=== PATIENT | male | born 1980 | race Hispanic/Latino ===

== ENCOUNTER 2019-02-06 21:12 | Emergency (ER) | payer MEDICAID ==
[2019-02-06 21:19] VITALS: RESP 18; TEMP 98.8
--- NOTE | 2019-02-06 22:29 | ED PDOC ---
HPI: Chest Pain Time Seen by Provider: 02/06/19 21:24 Chief Complaint (Nursing): Medical Clearance Chief Complaint (Provider): chest pain History Per: Patient History/Exam Limitations: no limitations Onset/Duration Of Symptoms: Intermittent Episodes (for 1 month and recurred today about an hour ago) Quality: Pressure Associated Symptoms: Dyspnea Additional Complaint(s): pt reports intermittent chest pain for months, recurred again today about an hour prior to arrival while under police custody. admits that he typically gets the pain during stressful situations he also reports that for the last month he's been having bilateral leg pains and swelling Has h/o IVDA and reports in May 2018 he was brought to [facility] under policy custody for clearance and that he was found to have septic knee and admitted for one month for IV antibiotics. He did not followup for further care (physical therapy and followup) after hospitalization. PMD None Past Medical History Reviewed: Historical Data, Nursing Documentation, Vital Signs Vital Signs: Last Vital Signs Temp 98.8 F 02/06/19 21:15 Pulse 88 02/06/19 21:15 Resp 18 02/06/19 21:15 BP 142/88 02/06/19 21:15 Pulse Ox 98 02/06/19 21:15 - Medical History PMH: Arthritis - Family History Family History: States: Unknown Family Hx - Social History Current smoker - smoking cessation education provided: Yes Drugs: Opiates - Allergies Allergies/Adverse Reactions: Allergies Allergy/AdvReac Type Severity Reaction Status Date / Time No Known Allergies Allergy Verified 02/06/19 21:15 Review of Systems ROS Statement: Except As Marked, All Systems Reviewed And Found Negative (and as per HPI) Constitutional: Positive for: Chills, Weakness, Malaise Cardiovascular: Positive for: Chest Pain, Light Headedness Respiratory: Positive for: Shortness of Breath Musculoskeletal: Positive for: Leg Pain (bilateral knee) Physical Exam - Reviewed Nursing Documentation Reviewed: Yes Vital Signs Reviewed: Yes - Physical Exam Appears: Positive for: Non-toxic Head Exam: Positive for: ATRAUMATIC, NORMOCEPHALIC Skin: Positive for: Warm, Dry Eye Exam: Positive for: EOMI, PERRL ENT: Negative for: Pharyngeal Erythema, Tonsillar Exudate Neck: Positive for: Painless ROM, Supple Cardiovascular/Chest: Positive for: Regular Rate, Rhythm, Chest Non Tender, Edema. Negative for: Murmur Respiratory: Positive for: Normal Breath Sounds. Negative for: Respiratory Distress Gastrointestinal/Abdominal: Positive for: Soft. Negative for: Tenderness Back: Positive for: Normal Inspection Extremity: Positive for: Other (bilateral lower leg 1+ pitting edema, subtle bilateral knee edema diffusely with FROM, no warmth or redness). Negative for: Calf Tenderness, Deformity Lymphatic: Negative for: Adenopathy Neurological/Psych: Positive for: Awake, Alert. Negative for: Motor/Sensory Deficits - Laboratory Results Result Diagrams: 02/06/19 23:32 02/06/19 22:38 - ECG ECG: Positive for: Interpreted By Me ECG Rhythm: Positive for: Normal QRS, Normal ST Segment, Sinus Rhythm (@88) O2 Sat by Pulse Oximetry: 98 Pulse Ox Interpretation: Normal - Progress ED Course And Treament: CXR No acute findings Bilateral knee: degenerative changes but no acute fracture/dislocation Labs demonstrate elevated ddimer. Otherwise no abnormalities CT ordrerd Disposition - Clinical Impression Clinical Impression: Chest pain, Leg edema - Disposition Disposition Time: 00:15 Condition: STABLE Instructions: General (DC) Patient Signed Over To: Jacob Vargas Handoff Comments: Pending CT and final ER disposition
[2019-02-06 22:53] LABS: ALB/GLOB RATIO 1.1 (1.0-2.1); ALBUMIN 4.5 g/dL (3.5-5.0); BLOOD UREA NITROGEN 17 mg/dl (9-20); CALCIUM 9.5 mg/dL (8.4-10.2); GFR NON-AFRICAN AMERICAN > 60
[2019-02-06 23:04] LABS: ALT/SGPT 28 U/L (21-72); AST/SGOT 37 U/L (17-59); B-TYPE NATRIURETIC PEPTIDE 76.9 pg/ml (0-450)
[2019-02-06 23:35] LABS: BASO % 0.4 % (0.0-2.0); EOS # 0.1 K/uL (0.0-0.7); EOS % 1.2 % (0.0-4.0); LYMPH # 2.2 K/uL (1.0-4.3); LYMPH % 22.1 % (20.0-40.0); MEAN CELL VOLUME 73.9 fl (80.0-94.0); MEAN CORPUSCULAR HEMOGLOBIN 24.4 pg (27.0-31.0); MEAN CORPUSCULAR HGB CONC 33.1 g/dL (33.0-37.0); MEAN PLATELET VOLUME 7.4 fl (7.2-11.7); MONO # 0.5 K/uL (0.0-0.8); MONO % 5.3 % (0.0-10.0); NEUT # 7.1 K/uL (1.8-7.0); NRBC % 0.1 % (0.0-0.0); RBC 4.89 Mil/uL (4.40-5.90); RED CELL DISTRIBUTION WIDTH 15.7 % (11.5-14.5)
[2019-02-07] MEDS ORDERED: Sodium Chloride 0.9% 50 ML IV ONE (00:29)
[2019-02-07] MEDS ORDERED: Iodixanol 320 MG/ML 100 ML BOTTLE IV ONE (00:29)
--- NOTE | 2019-02-07 01:05 | ED PDOC ---
- Laboratory Results Result Diagrams: 02/06/19 23:32 02/06/19 22:38 Lab Results: D-Dimer, Quantitative 308 ng/mlDDU (0-230) H 02/06/19 23:32 Troponin I < 0.0120 ng/mL (0.00-0.120) 02/06/19 22:38 NT-Pro-B Natriuret Pep 76.9 pg/ml (0-450) 02/06/19 22:38 Total Bilirubin 0.5 mg/dl (0.2-1.3) 02/06/19 22:38 AST 37 U/L (17-59) 02/06/19 22:38 ALT 28 U/L (21-72) 02/06/19 22:38 Alkaline Phosphatase 94 U/L (38-126) 02/06/19 22:38 Total Protein 8.7 G/DL (6.3-8.2) H 02/06/19 22:38 Albumin 4.5 g/dL (3.5-5.0) 02/06/19 22:38 Globulin 4.2 gm/dL (2.2-3.9) H 02/06/19 22:38 Albumin/Globulin Ratio 1.1 (1.0-2.1) 02/06/19 22:38 - ECG O2 Sat by Pulse Oximetry: 98 (RA) Pulse Ox Interpretation: Normal Medical Decision Making Medical Decision Makin:15 Patient endorsed to this provider by Dr. Fan at bedside pending CT, re- evaluation and final disposition. 01:05 CTA FINDINGS: Normal enhancement of the main pulmonary artery and right and left pulmonary arteries. Normal enhancement of the bilateral peripheral pulmonary arteries. There is no demonstrated pulmonary embolism. Normal thoracic aorta and visualized great vessels. There is no demonstrated aortic dissection. Normal heart and pericardium. Normal mediastinum. Normal hilar regions. Normal visualized trachea and bronchi. The lungs are well expanded. Normal pulmonary parenchyma. Normal pleura. Normal chest wall structures. Normal osseous structures. Normal visualized upper abdomen. IMPRESSION: Normal CTA chest examination, without a demonstrated pulmonary embolism or arterial dissection. 01:22 Patient is stable for discharge to police custody. He is both medically and psychiatrically cleared for incarceration. Scribe Attestation: Documented by Christine Gomez, acting as a scribe Lew Vargas MD Provider Scribe Attestation: All medical record entries made by the Scribe were at my direction and personally dictated by me. I have reviewed the chart and agree that the record accurately reflects my personal performance of the history, physical exam, medical decision making, and the department course for this patient. I have also personally directed, reviewed, and agree with the discharge instructions and disposition Disposition - Clinical Impression Clinical Impression: Chest pain, Leg edema - POA Present On Arrival: None - Disposition Disposition: Discharged/Transfer to Law Enforcement Disposition Time: 01:22 Condition: STABLE Additional Instructions: Patient is medically and psychiatrically stable for incarceration Instructions: General (DC)
[2019-02-07 01:48] VITALS: BP 134/88; PULSE 84
[2019-02-07 03:37] VITALS: O2SAT 98
--- NOTE | 2019-02-07 07:59 | RAD ---
Date of service: 02/06/2019 PROCEDURE: Bilateral Knee Radiographs. HISTORY: knee pains COMPARISON: None. TECHNIQUE: 4 views obtained. FINDINGS: BONES: Right Knee: No fracture Left Knee: No fracture JOINTS: Right Knee: Arthrosis Left knee: Arthrosis SOFT TISSUES: Right Knee: Normal. Left Knee: Normal. JOINT EFFUSION: Right Knee: None. Left Knee: None. OTHER FINDINGS: None. IMPRESSION: Bilateral tricompartmental osteoarthrosis. Each medial femoral tibial compartment appears most severely affected. The right medial femoral tibial compartment is more severe than the left. Along with joint space narrowing and subchondral sclerosis and cystic changes, right valgus orientation noted. No fracture or suspect lytic lesion.
--- NOTE | 2019-02-07 08:00 | RAD ---
Date of service: 02/06/2019 HISTORY: chest pain COMPARISON: No prior. TECHNIQUE: Chest PA and lateral views FINDINGS: LUNGS: No active pulmonary disease. PLEURA: No significant pleural effusion identified. No pneumothorax apparent. CARDIOVASCULAR: No aortic atherosclerotic calcification present. Normal cardiac size. No pulmonary vascular congestion. OSSEOUS STRUCTURES: No significant abnormalities. VISUALIZED UPPER ABDOMEN: Normal. OTHER FINDINGS: None. IMPRESSION: No active disease.
--- NOTE | 2019-02-07 08:43 | CT ---
Date of service: 02/07/2019 PROCEDURE: CT Chest with contrast (Pulmonary Angiogram) HISTORY: chest pain COMPARISON: None available. TECHNIQUE: Axial computed tomography images were obtained of the chest in the pulmonary arterial phase of enhancement. Coronal and sagittal reformatted images were created and reviewed. Intravenous contrast dose: 100 mL of Visipaque 320 Radiation dose: Total exam DLP = 378.83 mGy-cm. This CT exam was performed using one or more of the following dose reduction techniques: Automated exposure control, adjustment of the mA and/or kV according to patient size, and/or use of iterative reconstruction technique. FINDINGS: PULMONARY ARTERIES: Unremarkable. No pulmonary embolism. AORTA: No acute findings. No thoracic aortic aneurysm. No aortic atherosclerotic calcification or mural plaque present. LUNGS: Unremarkable. No nodule, mass or pulmonary consolidation. PLEURAL SPACES: Unremarkable. No effusion or pneumothorax. HEART: Unremarkable. No cardiomegaly. No significant pericardial effusion. LYMPH NODES: No lymphadenopathy. BONES, CHEST WALL: Unremarkable. No fracture or destructive lesion OTHER FINDINGS: In the left hepatic lobe close to the dome the benign-appearing 5 by 10 mm hypodense lesion probably a benign cyst is suggested. IMPRESSION: . No pulmonary embolus. This finding was was referenced in the preliminary [place] [facility] report In the left hepatic lobe a benign-appearing hypodense lesion is seen this is probably an incidental liver cyst. This finding was not mentioned in the [place] [facility] report. The major pertinent findings are believed concordant with this report and the [place] [facility] report
--- NOTE | 2019-02-08 11:01 | CARD ---
APPROVED REPORT Date of service: 02/06/2019 EKG Measurement Heart [id number] <Conclusion> Normal sinus rhythm Normal ECG
== END 2019-02-07 01:48 ==
LOC: H.ER 21:12
DX: R07.9 Chest pain, unspecified (principal); R60.0 Localized edema; F17.200 Nicotine dependence, unspecified, uncomplicated
CPT/HCPCS: 71046; 71275; 73562; 80053; 83735; 83880; 84100; 84484; 85025; 85378; 93005; 99282; Q9967